=== PATIENT | female | born 1990 | race Caucasian/White ===

== ENCOUNTER → 2018-05-14 | Outpatient (CLI) | payer MEDICAID ==
[2018-05-14 17:07] LABS: HCT 39.5 % (34.0-46.0); HGB 13.6 gm/dL (11.4-16.0); MCH 29.9 pg (25.0-35.0); MCHC 34.4 g/dL (31.0-37.0); Mean Platelet Volume 7.5; Platelet Count 300 k/uL (150-450); RBC 4.54 m/uL (3.80-5.40); RDW 12.4 % (11.5-15.5); WBC 10.6 k/uL (3.8-10.6)
[2018-05-15 05:13] LABS: HIV 1 AB Non-Reactive (Non-Reactive); HIV AB P24 Non-Reactive (Non-Reactive); HIV P24 AG Non-Reactive (Non-Reactive)
[2018-05-15 05:34] LABS: Toxoplasma Antibody (IgG) <3.0 IU/mL (<7.2); Toxoplasma Antibody (IgM) 3.7 AU/mL (<8.0)
== END ==
LOC: LABWHC1 15:30
PROVIDERS: ATTEND Obstetrics & Gynecology
DX: Z34.01 Encounter for supervision of normal first pregnancy, first trimester (principal); Z3A.00 Weeks of gestation of pregnancy not specified
CPT/HCPCS: 36415; 82565; 82947; 85027; 86762; 86777; 86778; 86780; 86850; 86900; 86901; 87340; 87390

== ENCOUNTER → 2018-05-20 | Outpatient (CLI) | payer MEDICAID ==
--- NOTE | 2018-05-20 18:33 | US ---
EXAMINATION TYPE: Transabdominal DATE OF EXAM: 08/05/17 COMPARISON: NONE CLINICAL HISTORY: Z36 Confirm dates and viability. Dates, first ultrasound for EXAM PERFORMED: Transabdominal (TA) EXAM MEASUREMENTS: GESTATIONAL AGE / DATING Dates by LMP: (9 weeks/6 days) EDC: 12/17/2018 Dates by Current Scan for: (9 weeks/3 days) EDC: 12/20/2018 MATERNAL ANATOMY Uterus: 8.8 x 7.0 x 5.3 cm Right Ovary: 3.0 x 1.6 x 1.7 cm Left Ovary: 2.7 x 1.7 x 1.1 cm Post CDS / Adnexa: no free fluid Presence of free fluid: no Presence of corpus luteal cyst: no Presence of subchorionic bleed: no GESTATION / SURVEY CRL: 2.6 cm (9 weeks/3 days) MSD: seen, not measured Yolk Sac (normal less than 6mm): 4.2 Heart Rate: 166 bpm Rhythm: Normal IUP: Viable IUP Date of LMP: 03/12/2018, G1 Beta HcG (if available): Not available at this time Single live IUP measuring 9 weeks 3 days IMPRESSION: Single live intrauterine with a calculated sonographic age of 9 weeks and 3 days and estima ngoc date of delivery of 12/20/2018, concordant with menstrual age.
== END | disposition home or self-care (01) ==
LOC: RADUSWWP 15:54
PROVIDERS: ATTEND Obstetrics & Gynecology
DX: Z36.89 Encounter for other specified antenatal screening (principal); Z3A.09 9 weeks gestation of pregnancy
CPT/HCPCS: 76801

== ENCOUNTER → 2018-06-10 | Outpatient (CLI) | payer MEDICAID ==
--- NOTE | 2018-06-10 10:58 | US ---
EXAMINATION TYPE: Transabdominal DATE OF EXAM: 08/05/17 COMPARISON: CLINICAL HISTORY: O76. Absent Hearttones. No cramping or spotting, no FHT's with hand held doppler to day EXAM PERFORMED: Transabdominal (TA) EXAM MEASUREMENTS: GESTATIONAL AGE / DATING Dates by LMP: (12 weeks/6 days) EDC: 12/17/2018 Dates by Current Scan: (12 weeks/4 days) EDC: 12/17/2018 MATERNAL ANATOMY Uterus: 12.2 x 8.7 x 7.7 cm Right Ovary: 2.5 x 1.7 x 1.5 cm Left Ovary: 2.5 x 1.5 x 1.6 cm Post CDS / Adnexa: no free fluid Presence of free fluid: no Presence of corpus luteal cyst: no Presence of subchorionic bleed: no GESTATION / SURVEY CRL: 6.1 cm (12 weeks/4 days) MSD: seen, not measured Yolk Sac (normal less than 6mm): not visualized Heart Rate: 160 bpm Rhythm: Normal IUP: Viable IUP Date of LMP: 03/12/2018, G1 Beta HcG (if available): Not available at this time IMPRESSION: Single live IUP measuring 12 weeks 4 days
== END | disposition home or self-care (01) ==
LOC: RADUSWWP 10:22
PROVIDERS: ATTEND Obstetrics & Gynecology
DX: O76 Abnormality in fetal heart rate and rhythm complicating labor and delivery (principal); Z3A.12 12 weeks gestation of pregnancy
CPT/HCPCS: 76801

== ENCOUNTER → 2018-07-22 | Outpatient (CLI) | payer MEDICAID ==
--- NOTE | 2018-07-22 15:41 | US ---
EXAMINATION TYPE: US OB anatomy transabd DATE OF EXAM: 07/22/2018 COMPARISON: HISTORY: O36.62X0 Large for dates 2nd trimester Anatomy TECHNIQUE: Transabdominal (TA) EXAM MEASUREMENTS: GESTATIONAL AGE / DATING Physician Established: (18 weeks/6 days) EDC: 12/17/2018 Dates by Current Scan for: (18 weeks/5 days) EDC: 12/18/2018 SURVEY IUP: Single PLACENTA: Anterior PREVIA: No previa ROSALVA: 13.4 cm Normal CERVICAL LENGTH (transabdominal: norm > 3.0cm): 3.4 cm BIOMETRY PRESENTATION: Variable BPD: 4.4 cm 19 weeks / 2 days HC: 15.5 cm 18 weeks / 3 days AC: 13.9 cm 19 weeks / 2 days FL: 2.8 cm 18 weeks / 4 days ESTIMATED WEIGHT IN GRAMS: 262.3 grams ESTIMATED WEIGHT IN LBS/OZ: 0 lbs. 9 oz. WEIGHT PERCENTAGE BASED ON ESTABLISHED DATE: 46.7 % HC/AC: 1.1 Normal FL/AC: 20.0 HEART RATE: 145 bpm RHYTHM: Normal ANATOMY SEEN (within normal limits): * Lateral Vent (< 1 cm) 0.5 cm * Cisterna Magna (< 1.1 cm) 0.3 cm * Nuchal Fold (< 0.6 cm) 0.3 cm * Cerebellum (varies with age) 2.0 cm Choroid Plexus (bilateral) Midline Falx Four Chamber Heart Outflow tracts: LVOT/RVOT Stomach Situs Diaphragm Kidneys (bilateral) Bladder Cord Insert Three Vessel Cord Longitudinal Spine Transverse Spine Arms (bilateral) Legs (bilateral) ANATOMY NOT SEEN: Cavus Septi Pellucidi Nose / Lips IMPRESSION: Single live IUP measuring 18 weeks 5 days. CSP and Nose/lips not visualized due to position. Call back appointment scheduled within 2 weeks for anatomy not seen.
== END | disposition home or self-care (01) ==
LOC: RADUSWWP 14:22
PROVIDERS: ATTEND Obstetrics & Gynecology
DX: O36.62X0 Maternal care for excessive fetal growth, second trimester, not applicable or unspecified (principal); Z3A.18 18 weeks gestation of pregnancy
CPT/HCPCS: 76811

== ENCOUNTER → 2018-08-05 | Outpatient (CLI) | payer MEDICAID ==
--- NOTE | 2018-08-05 09:47 | US ---
EXAMINATION TYPE: US OB Call Back DATE OF EXAM: 08/05/2018 COMPARISON: US 2019 CLINICAL HISTORY: OB Callback CSP,Nose/Lips. GESTATIONAL AGE / DATING Dates by Initial Survey Scan: (20 weeks/6 days) EDC: 12/17/2018 HEART RATE: 143 bpm RHYTHM: Normal ANATOMY SEEN (second anatomic survey look): Limited visualization due to position Cavus Septi Pellucidi: Nose / Lips: Due to positioning the structures again could not be clearly identified. IMPRESSION: The above structures again could not be clearly identified due to positioning.
== END | disposition home or self-care (01) ==
LOC: RADUSWWP 08:59
PROVIDERS: ATTEND Obstetrics & Gynecology
DX: Z36.2 Encounter for other antenatal screening follow-up (principal)

== ENCOUNTER → 2018-09-09 | Outpatient (CLI) | payer MEDICAID ==
--- NOTE | 2018-09-10 08:10 | US ---
EXAMINATION TYPE: US OB >= 14 wk fetus DATE OF EXAM: 09/09/2018 COMPARISON: Prior ultrasounds June 10, 2018 and July 22, 2018 CLINICAL HISTORY: Z36 F/U from previous, O36.62XO Large for dates Growth, CSP and Nose/Lips per jillian r. Limited visualization of CSP and Nose/lips due to position. TECHNIQUE: Transabdominal (TA) GESTATIONAL AGE / DATING Physician Established: (25 weeks/6 days) EDC: 12/17/2018 Dates by Current Scan: (26 weeks/0 days) EDC: 12/16/2018 SURVEY IUP: Single PLACENTA: Anterior PREVIA: No Previa ROSALVA: 13.8 cm Normal CERVICAL LENGTH (transabdominal: norm > 3.0cm): 3.7 cm BIOMETRY PRESENTATION: Vertex BPD: 6.4 cm 26 weeks / 0 days HC: 23.7 cm 25 weeks / 6 days AC: 20.6 cm 25 weeks / 2 days FL: 4.9 cm 26 weeks / 4 days ESTIMATED WEIGHT IN GRAMS: 847 grams ESTIMATED WEIGHT IN LBS/OZ: 1 lbs. 14 oz. WEIGHT PERCENTAGE BASED ON ESTABLISHED DATES: 34% HC/AC: 1.2 Normal FL/AC: 24% Normal HEART RATE: 142 bpm RHYTHM: Normal Single Live IUP measuring 26 weeks 0 days. Nose/lips and CSP visualized on today's exam, appearing within normal limits. Single live intrauterine gestation is redemonstrated. Normal cephalad presentation is currently seen. No cervical thickening noted. No placenta previa. Amniotic fluid index is calculated within normal l imits. biometry measurements are concordant and felt within normal limits with satisfactory int erval growth. Suboptimal evaluation of nose and lips and cervical spine as requested due to adv anced age and positioning on images saved and during real-time scanning. IMPRESSION: As above.
== END | disposition home or self-care (01) ==
LOC: RADUSWWP 16:27
PROVIDERS: ATTEND Obstetrics & Gynecology
DX: O36.63X0 Maternal care for excessive fetal growth, third trimester, not applicable or unspecified (principal); Z36.89 Encounter for other specified antenatal screening; Z3A.36 36 weeks gestation of pregnancy
CPT/HCPCS: 76805

== ENCOUNTER → 2018-09-19 | Outpatient (CLI) | payer MEDICAID ==
[2018-09-19 10:36] LABS: HGB 11.5 gm/dL (11.4-16.0); MCH 28.8 pg (25.0-35.0); MCHC 33.7 g/dL (31.0-37.0); MCV 85.6 fL (80.0-100.0); Mean Platelet Volume 7.7; Platelet Count 259 k/uL (150-450); RBC 3.98 m/uL (3.80-5.40); RDW 14.4 % (11.5-15.5); WBC 10.3 k/uL (3.8-10.6)
== END | disposition home or self-care (01) ==
LOC: LABWHC1 08:45
PROVIDERS: ATTEND Obstetrics & Gynecology
DX: Z34.02 Encounter for supervision of normal first pregnancy, second trimester (principal)
CPT/HCPCS: 36415; 82950; 85027; 86850

== ENCOUNTER 2018-10-27 06:47 | Outpatient (CLI) | payer MEDICAID ==
[2018-10-27 07:42] LABS: Appearance,Urine Clear (Clear); Bacteria,Urine Occasional /hpf; Bilirubin,Urine Negative (Negative); Blood,Urine Negative (Negative); Color,Urine Light Yellow; Glucose,Urine (UA) Negative (Negative); Ketones,Urine Negative (Negative); Leukocyte Esterase,Urine Small (Negative); Nitrite,Urine Negative (Negative); Protein,Urine Negative (Negative); RBC,Urine 1 /hpf (0-5); Specific Gravity,Urine 1.004 (1.001-1.035); Squamous Epithelial Cell,Urine <1 /hpf (0-4); Urobilinogen,Urine <2.0 mg/dL (<2.0); WBC,Urine 2 /hpf (0-5)
--- NOTE | 2018-10-27 09:34 | US ---
EXAMINATION TYPE: US OB >= 14 wk fetus DATE OF EXAM: 10/27/2018 COMPARISON: US CLINICAL HISTORY: abd pain, cervical dilation ,dilated to 1 cm per patient; , pelvic pain per pat ient. TECHNIQUE: Transabdominal (TA) GESTATIONAL AGE / DATING Physician Established: (32 weeks/5 days) EDC: 12/17/2018 Dates by Current Scan: (33 weeks/0 days) EDC: 12/15/2018 Beta HCG (if available): NA SURVEY IUP: Single PLACENTA: Anterior PREVIA: No Previa ROSALVA: 10.3 cm Normal CERVICAL LENGTH (transabdominal: norm > 3.0cm): 3.25 cm BIOMETRY PRESENTATION: Vertex LIE: Longitudinal BPD: 8.4 cm 33 weeks / 6 days HC: 30.4 cm 33 weeks / 5 days AC: 29.7 cm 33 weeks / 4 days FL: 6.3 cm 32 weeks / 5 days ESTIMATED WEIGHT IN GRAMS: 2184 grams ESTIMATED WEIGHT IN LBS/OZ: 4 lbs. 13 oz. WEIGHT PERCENTAGE BASED ON ESTABLISHED DATES: 62.2% HC/AC: 1.02 Normal FL/AC: 21.3 Normal HEART RATE: 138 bpm RHYTHM: Normal Single, live IUP, 33 weeks/0 days, EDC: 12/15/2018, HR 138bpm; cervix length is normal. head is noted low in pelvis at cervix. IMPRESSION: Limited survey. Viable intrauterine corresponding to ultrasound age 33 weeks 0 days w ith estimated date of delivery 12/15/2018
[2018-10-27 10:24] VITALS: BP 132/73; PULSE 82; RESP 16; TEMP 97.4
--- NOTE | 2018-10-27 17:07 | P.MSEPDOC ---
Presenting Problems - Arrival Data Date of Arrival on Unit: 10/27/18 Time of Arrival on Unit: 06:47 Mode of Transport: Ambulatory - Complaint OB-Reason for Admission/Chief Complaint: Observation/Evaluation Comment: abdominal pain Medical History - Information : 1 Para: 0 Term: 0 : 0 Abortions: Spontaneous or Elective: 0 Number of Living Children: 0 - Gestational Age Gestational Age by OLAYINKA (wks/days): 32 Weeks and 5 Days Review of Systems - Review of Systems Constitutional: No problems Breast: No problems ENT: No problems Cardiovascular: No problems Respiratory: No problems Gastrointestinal: Constipation, Pain Genitourinary: No problems Musculoskeletal: No problems Neurological: No problems Skin: No problems Vital Signs - Temperature Temperature: 97.4 F Temperature Source: Temporal Artery Scan - Pulse Right Sitting Pulse Rate: 82 Pulse Assessment Method: Automatic Cuff - Respirations Respiratory Rate: 16 Oxygen Delivery Method: Room Air - Blood Pressure Right Arm Blood Pressure: 132/73 Blood Pressure Mean: 92 Blood Pressure Source: Automatic Cuff Medical Screen Scoring (Pre) - Cervical Exam Dilation: 1-3 cm = 1 Effacement: More than 50% = 2 Membranes: Intact - Uterine Contractions Frequency: N/A Duration: N/A Intensity: N/A - Maternal Vital Signs Maternal Temperature: N/A Maternal Blood Pressure: N/A Signs of Preeclampsia: N/A Maternal Respirations: N/A - Maternal Trauma Maternal Trauma: N/A - Assessment - Baby A Baseline FHR: 135 Heart Rate - NICHD Category: Category I (Normal) = 0 NST: Reactive Position: N/A Station: N/A - Total Score - Baby A Total Score - Baby A: 3 - Total Score - Baby B Total Score - Baby B: 3 - Total Score - Baby C Total Score - Baby C: 3 - Level of Risk - Baby A Level of Risk - Baby A: Low (0-5) - Level of Risk - Baby B Level of Risk - Baby B: Low (0-5) - Level of Risk - Baby C Level of Risk - Baby C: Low (0-5) Physician Notification (Pre) - Physician Notified Physician Notified Date: 10/27/18 Physician Notified Time: 09:38 Physician/Practitioner Notifed:: Nam Perkins Order Received: Yes (d/c home) - Notification Comment Comment: negative ffn, u/s wnl Disposition - Disposition OB Disposition: Discharge to home Discharge Date: 10/27/18 Discharge Time: 09:46 I agree with the RN Medical Screening Exam: Yes Risk & Benefit of care provided described in d/c instruction: Yes Diagnosis: UNSPECIFIED ABDOMINAL PAIN (Patient presented with complaints of some nonspecific abdominal discomfort while at work. heart tones are reassuring. Currently exam she was 1 cm dilated the fibronectin was negative and she is having no contractions. Patient did have a complete OB ultrasound which was normal. She's instructed on pelvic rest and decreased activities to return if she has more than 6 contractions an hour or worsening of her discomfort.)
== END 2018-10-27 09:46 | disposition home or self-care (01) ==
LOC: FBPOP 06:47
PROVIDERS: ATTEND Obstetrics & Gynecology
DX: O26.93 Pregnancy related conditions, unspecified, third trimester (principal); R10.9 Unspecified abdominal pain; Z3A.32 32 weeks gestation of pregnancy
CPT/HCPCS: 59025; 76805; 81001; 82731; 99213

== ENCOUNTER → 2018-11-13 | Outpatient (CLI) | payer MEDICAID ==
--- NOTE | 2018-11-14 18:09 | US ---
EXAMINATION TYPE: US OB >= 14 wk fetus DATE OF EXAM: 11/13/2018 COMPARISON: None CLINICAL HISTORY: O36.63X0 Large for dates 3rd trimester TECHNIQUE: Transabdominal (TA) GESTATIONAL AGE / DATING Physician Established: (35 weeks/1 days) EDC: 12/17/18 Dates by LMP: (35 weeks/1 days) EDC: 12/17/18 Dates by First Scan: ( 34 weeks/5 days) EDC: 12/20/18 Dates by Current Scan: ( 36weeks/1 days) EDC: 12/10/18 SURVEY IUP: Single PLACENTA: Anterior PREVIA: No Previa ROSALVA: 10.2 cm CERVICAL LENGTH (transabdominal: norm > 3.0cm): 3.2 cm BIOMETRY PRESENTATION: Vertex BPD:unable to obtain measurement due to position HC:unable to obtain measurement due to position AC: 31.8 cm 35 weeks / 5 days FL: 7.1 cm 36 weeks / 4 days ESTIMATED WEIGHT IN GRAMS: 2863 grams ESTIMATED WEIGHT IN LBS/OZ: 6 lbs. 5 oz. WEIGHT PERCENTAGE BASED ON ESTABLISHED DATES: 76% HC/AC: -- FL/AC: 22. HEART RATE: 158 bpm RHYTHM: Normal *Unable to obtain head measurements due to position. IMPRESSION: 1. Single intrauterine gestation estimated at 36 weeks 1 day gestation based on current ultrasound me asurements. This would've a calculated EDC of 12/10/2018. Correlate this with the physician established EDC of 12/17/2018 2. Cardiac activity measures 158 bpm. 3. Estimated weight 2863 g which is in the 76th percentile.
== END ==
LOC: RADUSWWP 16:14
PROVIDERS: ATTEND Obstetrics & Gynecology
DX: O36.63X0 Maternal care for excessive fetal growth, third trimester, not applicable or unspecified (principal); Z3A.36 36 weeks gestation of pregnancy
CPT/HCPCS: 76805

== ENCOUNTER 2018-11-28 09:22 | Outpatient (CLI) | payer MEDICAID ==
[2018-11-28 10:23] VITALS: BP 126/85; PULSE 103; RESP 18; TEMP 98.7
--- NOTE | 2018-12-12 10:58 | P.MSEPDOC ---
Presenting Problems - Arrival Data Date of Arrival on Unit: 11/28/18 Time of Arrival on Unit: 09:55 Mode of Transport: Ambulatory - Complaint OB-Reason for Admission/Chief Complaint: Possible Onset of Labor Comment: had contrx thru the night 4-10 min apart. denies leaking or active bleeding Medical History - Information : 1 Para: 0 Term: 0 : 0 Abortions: Spontaneous or Elective: 0 Number of Living Children: 0 - Gestational Age Gestational Age by OLAYINKA (wks/days): 37 Weeks and 2 Days Review of Systems - Review of Systems Constitutional: No problems Breast: No problems ENT: No problems Cardiovascular: No problems Respiratory: No problems Gastrointestinal: No problems Genitourinary: No problems Musculoskeletal: No problems Neurological: No problems Skin: No problems Vital Signs - Temperature Temperature: 98.7 F Temperature Source: Oral - Pulse Right Brachial Pulse Rate: 103 Pulse Assessment Method: Auscultation - Respirations Respiratory Rate: 18 Oxygen Delivery Method: Room Air O2 Sat by Pulse Oximetry: 97 - Blood Pressure Right Arm Blood Pressure: 126/85 Blood Pressure Mean: 98 Blood Pressure Source: Automatic Cuff Medical Screen Scoring (Pre) - Cervical Exam Dilation: 1-3 cm = 1 Effacement: More than 50% = 2 Membranes: Intact - Uterine Contractions Frequency: N/A Duration: > 40 seconds = 2 Intensity: N/A - Maternal Vital Signs Maternal Temperature: N/A Signs of Preeclampsia: N/A Maternal Respirations: N/A - Maternal Trauma Maternal Trauma: N/A - Assessment - Baby A Baseline FHR: 145 Heart Rate - NICHD Category: Category I (Normal) = 0 NST: Reactive Position: N/A Station: N/A - Total Score - Baby A Total Score - Baby A: 5 - Total Score - Baby B Total Score - Baby B: 5 - Total Score - Baby C Total Score - Baby C: 5 - Level of Risk - Baby A Level of Risk - Baby A: Low (0-5) - Level of Risk - Baby B Level of Risk - Baby B: Low (0-5) - Level of Risk - Baby C Level of Risk - Baby C: Low (0-5) Physician Notification (Pre) - Physician Notified Physician Notified Date: 11/28/18 Physician Notified Time: 09:50 Spoke With: khurram. New Order Received: Yes - Notification Comment Comment: disch if no chnage in cervix after one hour Disposition - Disposition OB Disposition: Discharge to home Discharge Date: 11/28/18 Discharge Time: 11:15 I agree with the RN Medical Screening Exam: Yes Risk & Benefit of care provided described in d/c instruction: Yes Diagnosis: FALSE LABOR AT OR AFTER 37 COMPLETED WEEKS OF GESTATION
== END 2018-11-28 11:15 | disposition home or self-care (01) ==
LOC: FBPOP 09:22
PROVIDERS: ATTEND Obstetrics & Gynecology
DX: O47.1 False labor at or after 37 completed weeks of gestation (principal); Z3A.37 37 weeks gestation of pregnancy
CPT/HCPCS: 59025; 99213

== ENCOUNTER 2018-11-28 11:46 | Inpatient (IN) | payer MEDICAID ==
[2018-11-28] MEDS ORDERED: CARBOPROST TROMETHAMINE 250 MCG/ML 1 ML AMP IM PRN (12:05)
[2018-11-28] MEDS ORDERED: OXYTOCIN 10 UNIT/ML 1 ML VIAL IM PRN (12:05)
[2018-11-28] MEDS ORDERED: OXYTOCIN 30 UNITS/500 ML NS 30 UNIT in SALINE 1 500ML.BAG IV SCH (12:05)
[2018-11-28] MEDS ORDERED: LIDOCAINE 0.5% (PF) 5 MG/ML (50 ML SDV) SQ PRN (12:05)
[2018-11-28] MEDS ORDERED: LACTATED RINGERS 1,000 ML IV SCH (12:05)
[2018-11-28] MEDS ORDERED: METHYLERGONOVINE 0.2 MG/ML 1 ML AMP IM PRN (12:05)
[2018-11-28] MEDS ORDERED: TERBUTALINE 1 MG/ML VIAL SQ PRN (12:05)
[2018-11-28 14:35] LABS: Anisocytosis Slight; Basophils % (A) 0 %; Eosinophils # (A) 0.1 k/uL (0-0.7); Eosinophils % (A) 1 %; HGB 11.7 gm/dL (11.4-16.0); Lymphocytes # (A) 2.7 k/uL (1.0-4.8); Lymphocytes % (A) 20 %; MCH 29.6 pg (25.0-35.0); MCHC 34.4 g/dL (31.0-37.0); MCV 85.9 fL (80.0-100.0); Mean Platelet Volume 9.7; Monocytes # (A) 0.7 k/uL (0-1.0); Monocytes % (A) 6 %; Neutrophils # (A) 9.5 k/uL (1.3-7.7); Neutrophils % (A) 71 %; Platelet Count 233 k/uL (150-450); RBC 3.95 m/uL (3.80-5.40); RDW 16.1 % (11.5-15.5); WBC 13.3 k/uL (3.8-10.6)
[2018-11-28] MEDS ORDERED: LANOLIN CREAM 5 GM TUBE TOPICAL PRN (15:38)
[2018-11-28] MEDS ORDERED: HYDROCORTISONE 2.5% RECTAL CREAM 30 GM TUBE RECTAL PRN (15:38)
[2018-11-28] MEDS ORDERED: ACETAMINOPHEN TAB 325 MG TAB PO PRN (15:38)
[2018-11-28] MEDS ORDERED: MEASLES-MUMPS-RUBELLA VACC/PF 12,500 UNIT/0.5 ML VIAL SQ ONE (15:38)
[2018-11-28] MEDS ORDERED: ZOLPIDEM 5 MG TAB PO PRN (15:38)
[2018-11-28] MEDS ORDERED: SIMETHICONE 80 MG CHEWABLE PO PRN (15:38)
[2018-11-28] MEDS ORDERED: diphenhydrAMINE 50 MG CAP PO PRN (15:38)
[2018-11-28] MEDS ORDERED: diphenhydrAMINE 50 MG/ML 1 ML VIAL IVP PRN ×2 (15:38)
[2018-11-28] MEDS ORDERED: WITCH HAZEL 1 EACH MED..PAD TOPICAL PRN (15:38)
[2018-11-28] MEDS ORDERED: BENZOCAINE/MENTHOL SPRAY 1 GM/SPRAY AEROSOL TOPICAL PRN (15:38)
[2018-11-28] MEDS ORDERED: diphenhydrAMINE 25 MG CAP PO PRN (15:38)
--- NOTE | 2018-11-28 15:40 | P.HPOB ---
History of Present Illness H&P Date: 11/28/18 Chief Complaint: Intrauterine at term active labor: Spontaneous ru pture membranes Tabitha is a 28-year-old at 37 weeks gestation who arrives following spontaneous rupture of membranes. She had been in labor and delivery earlier this morning had made no cervical change was discharged home. On driving home she noted large leak of fluid and her water broke she was brought back to labor and delivery category 1 heart rate tracings are noted and she is dilated 4 cm. We'll plan to allow her to see if she gets labor by herself and she is considering epidural for analgesia. Her Precis course otherwise has been unremarkable and she is feeling well at this time. Vital signs are stable and afebrile. Heart regular, lungs clear, extremities without pain. Abdomen soft nontender. Positive bowel sounds are noted. Gravid uterus is noted. Assessment intrauterine term. Plan expect spontaneous vaginal delivery. Past Medical History Past Medical History: No Reported History Additional Past Medical History / Comment(s): migraines History of Any Multi-Drug Resistant Organisms: None Reported Past Surgical History: No Surgical Hx Reported Smoking Status: Never smoker Medications and Allergies Home Medications Medication Instructions Recorded Confirmed Type Pnv,Calcium 72/Iron/Folic Acid 1 each PO DAILY 10/27/18 11/28/18 History [ Plus Tablet] Allergies Allergy/AdvReac Type Severity Reaction Status Date / Time No Known Allergies Allergy Verified 10/27/18 07:01 Exam Osteopathic Statement: *. No significant issues noted on an osteopathic structural exam other than those noted in the History and Physical/Consult. Intake and Output 11/28/18 11/28/18 11/28/18 06:59 14:59 22:59 Other: Weight 100.244 kg Results Result Diagrams: 11/28/18 12:45 Abnormal Lab Results - Last 24 Hours (Table) 11/28/18 Range/Units 12:45 WBC 13.3 H (3.8-10.6) k/uL RDW 16.1 H (11.5-15.5) % Neutrophils # 9.5 H (1.3-7.7) k/uL
--- NOTE | 2018-11-28 15:41 | P.PROBDLV ---
Vaginal Delivery Note - . Vaginal Delivery Note: patient progressed complete and pushed with spontaneous vaginal delivery of a viable female over an intact perineum. Falling deliver the head anterior posterior shoulders were easily delivered gentle downward upper traction followed by the remainder the baby. Baby was delivered from left occiput anterior position. Once he was delivered umbilical cord was allowed to pulsate for 30 seconds prior to clamping and cutting. Once this was accomplished nursery personnel was present and assumed care. Placenta was then delivered intact. Pitocin was added to the IV. Small laceration was noted in the right vaginal wall at approximately 7:00 it was repaired in running fashion with 3-0 Vicryl following 1% Xylocaine for analgesia. scores were 9 and 9 at one and 5 minutes respectively and the weight was 7 lbs. 0 oz. Both mother and baby are stable following delivery.
[2018-11-28] MEDS ORDERED: OXYTOCIN 20 UNITS/1000 ML NS 1,000 ML IV SCH (15:45)
[2018-11-28 18:10] VITALS: BMI 33.5
[2018-11-28] MEDS: IBUPROFEN 600 MG TAB PO PRN (19:44)
[2018-11-28] MEDS: SENNOSIDES-DOCUSATE SODIUM 1 EACH TAB PO SCH (19:44)
[2018-11-28] MEDS ORDERED: Rhogam IMMUNE GLOBULIN 1,500 UNIT/1 ML IM ONE (21:33)
[2018-11-29] MEDS: IBUPROFEN 600 MG TAB PO PRN ×2 (03:35→08:57)
[2018-11-29 07:10] LABS: Basophils # (A) 0.1 k/uL (0-0.2); Basophils % (A) 0 %; Eosinophils # (A) 0.1 k/uL (0-0.7); Eosinophils % (A) 1 %; HCT 29.9 % (34.0-46.0); HGB 10.2 gm/dL (11.4-16.0); Lymphocytes # (A) 3.6 k/uL (1.0-4.8); Lymphocytes % (A) 23 %; MCH 29.2 pg (25.0-35.0); MCHC 34.3 g/dL (31.0-37.0); MCV 85.1 fL (80.0-100.0); Mean Platelet Volume 8.5; Monocytes # (A) 0.9 k/uL (0-1.0); Monocytes % (A) 6 %; Neutrophils # (A) 10.8 k/uL (1.3-7.7); Neutrophils % (A) 68 %; Platelet Count 222 k/uL (150-450); RBC 3.51 m/uL (3.80-5.40); RDW 15.3 % (11.5-15.5); WBC 15.8 k/uL (3.8-10.6)
[2018-11-29] MEDS: SENNOSIDES-DOCUSATE SODIUM 1 EACH TAB PO SCH (08:57)
--- NOTE | 2018-11-29 09:44 | P.DS ---
Providers Date of admission: 11/28/18 12:10 Expected date of discharge: 11/29/18 Attending physician: Kristal Portillo Primary care physician: Stated None Hospital Course: Tabitha is doing very well post day 1. She is ambulating, voiding and tolerating her diet. She voices no complaints. Vital signs stable and afebrile. Heart regular, lungs clear, extremities are without pain. Abdomen is soft uterus is firm and lochia is reported to be light. Assessment post day 1. Plan discharged to home with instructions to follow up with Dr. Wesley in 6 weeks. Prescription for a breast pump provided. Discharge instructions are th oroughly reviewed and all questions were answered for her prior to her discharge. Patient Condition at Discharge: Good Plan - Discharge Summary New Discharge Prescriptions: No Action Pnv,Calcium 72/Iron/Folic Acid [ Plus Tablet] 1 each PO DAILY Discharge Medication List Pnv,Calcium 72/Iron/Folic Acid [ Plus Tablet] 1 each PO DAILY 10/27/18 [History] Follow up Appointment(s)/Referral(s): Kristal Portillo DO [Doctor of Osteopathic Medicine] - 6 Weeks Activity/Diet/Wound Care/Special Instructions: No heavy lifting, limit stairs and driving, and pelvic rest. If any high temperatures, heavy bleeding, or severe pain call my office Discharge Disposition: HOME SELF-CARE
[2018-11-29 10:36] VITALS: RESP 18
[2018-11-29 18:07] VITALS: BP 124/74; PULSE 82; TEMP 98.2
== END 2018-11-29 19:10 | disposition home or self-care (01) | DRG 807 ==
LOC: FBPOP 11:46 → 4FBP 12:10
PROVIDERS: ADMIT Obstetrics & Gynecology; ATTEND Obstetrics & Gynecology
PROC: 10E0XZZ Delivery of Products of Conception, External Approach (ICD-10-PCS; principal; 2018-11-28)
PROC: 0HQ9XZZ Repair Perineum Skin, External Approach (ICD-10-PCS; 2018-11-28)
DX: O99.354 Diseases of the nervous system complicating childbirth (principal); Z37.0 Single live birth; O71.4 Obstetric high vaginal laceration alone; G43.909 Migraine, unspecified, not intractable, without status migrainosus; Z3A.37 37 weeks gestation of pregnancy
CPT/HCPCS: 59025; 84112; 85025; 85461; 86850; 86900; 86901; 90707; 99213

== ENCOUNTER 2020-12-15 18:15 | Emergency (ER) | payer BC ==
[2020-12-15 18:33] VITALS: RESP 18; TEMP 98.1
--- NOTE | 2020-12-15 18:48 | ED ---
Lower Extremity Injury HPI - General Chief Complaint: Extremity Injury, Lower Stated Complaint: R ankle injury Source: patient Mode of arrival: wheelchair Limitations: physical limitation - History of Present Illness Initial Comments: 30-year-old white female, well-appearing and 24 weeks , presents to the emergency room after stepping on a rock at her house and rolling her right ankle. Patient states she took Tylenol and has been resting it but has been having difficulty bearing weight. There is no some bruising to the lateral aspect of her right foot so she came in for an x-ray. She states that she did get some pain relief with Tylenol that she took prior to arrival. There are no other injuries. There is no abdominal pain or vaginal bleeding or problems with . MD Complaint: ankle injury, foot injury -: hour(s) (10) Injury: Ankle: Right, Foot: Right Type of Injury: eversion Place: home, street/outdoors Severity scale (1-10): 8 Improves With: other (Tylenol) Worsens With: weight bearing Context: other (Stepped on a rock and rolled right ankle) Associated Symptoms: able to partially bear weight Treatments Prior to Arrival: other (tylenol) - Related Data Home Medications Medication Instructions Recorded Confirmed Pnv,Calcium 72/Iron/Folic Acid 1 each PO DAILY 10/27/18 11/28/18 [ Plus Tablet] Allergies Allergy/AdvReac Type Severity Reaction Status Date / Time No Known Allergies Allergy Verified 10/27/18 07:01 Review of Systems ROS Statement: Those systems with pertinent positive or pertinent negative responses have been documented in the HPI. ROS Other: All systems not noted in ROS Statement are negative. Past Medical History Past Medical History: No Reported History Additional Past Medical History / Comment(s): migraines History of Any Multi-Drug Resistant Organisms: None Reported Past Surgical History: No Surgical Hx Reported Past Anesthesia/Blood Transfusion Reactions: No Reported Reaction Past Psychological History: No Psychological Hx Reported Past Alcohol Use History: None Reported, Occasional Past Drug Use History: None Reported - Past Family History Mother Family Medical History: No Reported History General Exam Limitations: physical limitation General appearance: alert, in no apparent distress Head exam: Present: atraumatic, normocephalic, normal inspection Eye exam: Present: normal appearance, PERRL, EOMI. Absent: scleral icterus, conjunctival injection, periorbital swelling Pupils: Present: normal accommodation ENT exam: Present: normal exam, normal oropharynx, mucous membranes moist Neck exam: Present: normal inspection. Absent: tenderness, meningismus, lymphadenopathy Respiratory exam: Present: normal lung sounds bilaterally. Absent: respiratory distress, wheezes, rales, rhonchi, stridor, chest wall tenderness, accessory muscle use, decreased breath sounds, prolonged expiratory Cardiovascular Exam: Present: regular rate, normal rhythm, normal heart sounds. Absent: systolic murmur, diastolic murmur, rubs, gallop, clicks Right Ankle exam: Present: swelling Foot/Toe exam: Present: tenderness, swelling, ecchymosis (Lateral aspect of the fifth metatarsal). Absent: deformity, crepitus, dislocation, foreign body, calcaneal tenderness Neurovascular tendon exam: Present: no vascular compromise. Absent: abnormal cap refill, extremity cold to touch, pallor, foot drop Back exam: Present: normal inspection, full ROM. Absent: tenderness, CVA tenderness (R), CVA tenderness (L), muscle spasm, paraspinal tenderness, vertebral tenderness, rash noted Neurological exam: Present: alert, oriented X3, CN II-XII intact Psychiatric exam: Present: normal affect, normal mood Skin exam: Present: warm, dry, intact, normal color. Absent: rash Course Vital Signs 12/15/20 12/15/20 18:28 20:20 Temperature 98.1 F Pulse Rate 70 80 Respiratory 18 18 Rate Blood Pressure 128/71 115/71 O2 Sat by Pulse 99 96 Oximetry Medical Decision Making - Medical Decision Making X-ray of the right ankle and foot shows borderline widening of the medial clear space suggestive of ligamentous injury, however patient has no pain in this area. There is no acute osseous abnormality. Patient has no pain with flexion or dorsiflexion. Pain, bruising and swelling is noted to the right lateral aspect at the base of the fifth metatarsal. Case discussed with Dr. George. Patient was placed in an air splint and given crutches. Directed to follow-up with orthopedics. Disposition Clinical Impression: Foot sprain, Sprain and strain of ankle Disposition: HOME SELF-CARE Condition: Good Instructions (If sedation given, give patient instructions): Ankle Sprain (ED), Foot Contusion (ED), Foot Sprain (ED) Additional Instructions: Use the air splint and crutches. Rest, ice to site, and elevate while at home. Use Tylenol for pain. Follow-up with orthopedics next week. Is patient prescribed a controlled substance at d/c from ED?: No Referrals: Missy Avery DO [Primary Care Provider] - 1-2 days Sky Tijerina PAC [PHYSICIAN VESSEL [employer]DINARY SEAMAN] - 1-2 days Time of Disposition: 20:07
--- NOTE | 2020-12-15 19:39 | XR ---
Result: Clinical History: Pain status post injury. Comparison: None available. Technique: AP, lateral and oblique views of the right ankle. AP, lateral and oblique views of the right foot. Findings: The bone mineralization is age-appropriate. Right ankle: There is no acute fracture or dislocation. There is borderline widening of the medial cl ear space. The joint spaces are preserved. Right foot: There is no acute fracture or dislocation. The visualized osseous structures are in eduardo omic alignment. The joint spaces are preserved. IMPRESSION: Borderline widening of the medial clear space, suggestive of ligamentous injury. No acute osseous abnormality of the right ankle or foot.
[2020-12-15 20:23] VITALS: BP 115/71; PULSE 80
== END 2020-12-15 20:33 | disposition home or self-care (01) ==
LOC: EC 18:15
DX: O9A.212 Injury, poisoning and certain other consequences of external causes complicating pregnancy, second trimester (principal); S93.401A Sprain of unspecified ligament of right ankle, initial encounter; Z3A.24 24 weeks gestation of pregnancy; W22.8XXA Striking against or struck by other objects, initial encounter
CPT/HCPCS: 99283

== ENCOUNTER 2021-02-06 19:11 | Outpatient (CLI) | payer BC ==
[2021-02-06 20:32] VITALS: BP 135/63; PULSE 98; RESP 16; TEMP 96.7
--- NOTE | 2021-02-07 09:13 | P.MSEPDOC ---
Presenting Problems - Arrival Data Date of Arrival on Unit: 02/06/21 Time of Arrival on Unit: 19:11 Mode of Transport: Ambulatory - Complaint OB-Reason for Admission/Chief Complaint: Pain Comment: Patient arrives to triage with complaints of abdominal tightness and cramping that has occured throughout the day while on her feet at work but is releived while resting. Medical History - Information : 2 Para: 1 Term: 1 : 0 Abortions: Spontaneous or Elective: 0 Number of Living Children: 1 - Gestational Age Gestational Age by OLAYINKA (wks/days): 31 Weeks and 5 Days Review of Systems - Review of Systems Constitutional: No problems Breast: No problems ENT: No problems Cardiovascular: No problems Respiratory: No problems Gastrointestinal: No problems Genitourinary: No problems Musculoskeletal: No problems Neurological: No problems Skin: No problems Vital Signs - Temperature Temperature: 96.7 F - Pulse Right Brachial Pulse Rate: 98 Pulse Assessment Method: Automatic Cuff - Respirations Respiratory Rate: 16 Oxygen Delivery Method: Room Air O2 Sat by Pulse Oximetry: 98 - Blood Pressure Right Arm Blood Pressure: 135/63 Blood Pressure Mean: 87 Blood Pressure Source: Automatic Cuff Medical Screen Scoring - Cervical Exam Membranes: Intact - Assessment - Baby A Baseline FHR: 145 Heart Rate - NICHD Category: Category I (Normal) NST: Reactive Physician Notification - Physician Notified Physician Notified Date: 02/06/21 Physician Notified Time: 19:57 Physician: Puneet Browning New Order Received: Yes - Notification Comment Comment: Called with report of patient c/o abdominal tightness, heart tones, and blood pressures. FFN, cervical exam, repeat blood pressures, and u/a ordered. 1954- Dr. Browning called to check in. Cervix closed and decreased in elevated blood pressure. Patient approved for discharge. Maternal Triage Index - Maternal Triage Index Presenting for scheduled procedure w/no complaint: No - Stat/Priority 1 Stat Priority 1: No - Urgent/Priority 2 Urgent Priority 2: No - Prompt/Priority 3 Prompt Priority 3: No - Non-Urgent/Priority 4 Non-Urgent Priority 4: Yes Criteria Met for Priority 4: Patient arrives to triage with complaints of abdominal tightness and cramping that has occured throughout the day while on her feet at work but is releived while resting. Disposition - Disposition OB Disposition: Discharge to home Discharge Date: 02/06/21 Discharge Time: 20:00 I agree with the RN Medical Screening Exam: Yes Case reviewed; plan agreed upon as documented in EMR&OBIX.: Yes Diagnosis: FALSE LABOR BEFORE 37 COMPLETED WEEKS OF GEST, THIRD TRI
== END 2021-02-06 20:00 ==
LOC: FBPOP 19:11
PROVIDERS: ATTEND Obstetrics & Gynecology
DX: O47.03 False labor before 37 completed weeks of gestation, third trimester (principal); Z3A.31 31 weeks gestation of pregnancy
CPT/HCPCS: 59025; 99213

== ENCOUNTER 2021-03-05 17:15 | Outpatient (CLI) | payer BC ==
[2021-03-05 18:57] VITALS: BP 130/73; PULSE 76; RESP 18; TEMP 97.1
--- NOTE | 2021-03-05 19:00 | P.MSEPDOC ---
Presenting Problems - Arrival Data Date of Arrival on Unit: 03/05/21 Time of Arrival on Unit: 17:15 Mode of Transport: Ambulatory - Complaint OB-Reason for Admission/Chief Complaint: Possible Onset of Labor Medical History - Information : 2 Para: 1 Term: 1 : 0 Abortions: Spontaneous or Elective: 0 Number of Living Children: 1 - Gestational Age Gestational Age by OLAYINKA (wks/days): 35 Weeks and 4 Days Review of Systems - Review of Systems Constitutional: No problems Breast: No problems ENT: No problems Cardiovascular: No problems Respiratory: No problems Gastrointestinal: No problems Genitourinary: No problems Musculoskeletal: No problems Neurological: No problems Skin: No problems Vital Signs - Temperature Temperature: 97.1 F Temperature Source: Temporal Artery Scan - Pulse Right Sitting Brachial Pulse Rate: 76 Pulse Assessment Method: Automatic Cuff - Respirations Respiratory Rate: 18 Oxygen Delivery Method: Room Air O2 Sat by Pulse Oximetry: 98 - Blood Pressure Right Arm Sitting Blood Pressure: 130/73 Blood Pressure Mean: 92 Blood Pressure Source: Automatic Cuff Medical Screen Scoring - Cervical Exam Dilation (cm): 1.5 Effacement (%): 50 Station: -2 Membranes: Intact - Assessment - Baby A Baseline FHR: 135 Heart Rate - NICHD Category: Category I (Normal) NST: Reactive Physician Notification - Physician Notified Physician Notified Date: 03/05/21 Physician Notified Time: 18:00 Physician: Puneet Browning New Order Received: Yes - Notification Comment Comment: Ok to dc home. Pt to return with continued or increased symptoms. Follow up with Dr Portillo Friday as scheduled. Maternal Triage Index - Maternal Triage Index Presenting for scheduled procedure w/no complaint: No - Stat/Priority 1 Stat Priority 1: No - Urgent/Priority 2 Urgent Priority 2: No - Prompt/Priority 3 Prompt Priority 3: No - Non-Urgent/Priority 4 Non-Urgent Priority 4: Yes Criteria Met for Priority 4: rule out labor, 35 4/7 - Scheduled/Requesting Priority 5 Scheduled/Requesting Priority 5: No Disposition - Disposition OB Disposition: Discharge to home Discharge Date: 03/05/21 Discharge Time: 18:53 I agree with the RN Medical Screening Exam: Yes Case reviewed; plan agreed upon as documented in EMR&OBIX.: Yes Diagnosis: FALSE LABOR BEFORE 37 COMPLETED WEEKS OF GEST, THIRD TRI
== END 2021-03-05 18:57 | disposition home or self-care (01) ==
LOC: FBPOP 17:15
PROVIDERS: ATTEND Obstetrics & Gynecology
DX: O47.03 False labor before 37 completed weeks of gestation, third trimester (principal); Z3A.35 35 weeks gestation of pregnancy
CPT/HCPCS: 59025; 99213

== ENCOUNTER 2021-03-16 11:39 | Inpatient (IN) | payer BC ==
[2021-03-16] MEDS ORDERED: OXYTOCIN 10 UNIT/ML 1 ML VIAL IM PRN (13:20)
[2021-03-16] MEDS ORDERED: LIDOCAINE 0.5% (PF) 5 MG/ML (50 ML SDV) SQ PRN (13:20)
[2021-03-16] MEDS ORDERED: TERBUTALINE 1 MG/ML VIAL SQ PRN (13:20)
[2021-03-16] MEDS ORDERED: METHYLERGONOVINE 0.2 MG/ML 1 ML AMP IM PRN (13:20)
[2021-03-16] MEDS ORDERED: CARBOPROST TROMETHAMINE 250 MCG/ML 1 ML AMP IM PRN (13:20)
[2021-03-16] MEDS ORDERED: OXYTOCIN 30 UNITS/500 ML NS 30 UNIT in SALINE 1 500ML.BAG IV SCH ×2 (13:30→16:30)
[2021-03-16] MEDS: LACTATED RINGERS 1,000 ML IV SCH ×2 (14:04→15:02)
[2021-03-16 14:18] LABS: Basophils % (A) 0 %; Eosinophils # (A) 0.1 k/uL (0-0.7); Eosinophils % (A) 1 %; HCT 35.8 % (34.0-46.0); HGB 12.5 gm/dL (11.4-16.0); Hyperchromasia Slight; Lymphocytes # (A) 2.9 k/uL (1.0-4.8); Lymphocytes % (A) 24 %; MCH 30.4 pg (25.0-35.0); MCHC 35.1 g/dL (31.0-37.0); MCV 86.8 fL (80.0-100.0); Monocytes # (A) 0.6 k/uL (0-1.0); Monocytes % (A) 5 %; Neutrophils # (A) 8.3 k/uL (1.3-7.7); Neutrophils % (A) 68 %; Platelet Count 313 k/uL (150-450); Poikilocytosis Slight; RBC 4.12 m/uL (3.80-5.40); RDW 14.2 % (11.5-15.5); WBC 12.3 k/uL (3.8-10.6)
[2021-03-16] MEDS ORDERED: SODIUM CHLORIDE 0.9% 100 ML BAG ONE (14:33)
[2021-03-16] MEDS ORDERED: ROPIVACAINE 5MG/ML 20ML VIAL ONE (14:33)
[2021-03-16] MEDS ORDERED: fentaNYL (PF) 50 MCG/ML 5 ML AMP ONE (14:33)
[2021-03-16] MEDS ORDERED: HYDROCORTISONE 2.5% RECTAL CREAM 30 GM TUBE RECTAL PRN (16:18)
[2021-03-16] MEDS ORDERED: LANOLIN CREAM 5 GM TUBE TOPICAL PRN (16:18)
[2021-03-16] MEDS ORDERED: diphenhydrAMINE 50 MG CAP PO PRN (16:18)
[2021-03-16] MEDS ORDERED: ZOLPIDEM 5 MG TAB PO PRN (16:18)
[2021-03-16] MEDS ORDERED: SIMETHICONE 80 MG CHEWABLE PO PRN (16:18)
[2021-03-16] MEDS ORDERED: BENZOCAINE/MENTHOL SPRAY 1 GM/SPRAY AEROSOL TOPICAL PRN (16:18)
[2021-03-16] MEDS ORDERED: IBUPROFEN 600 MG TAB PO PRN (16:18)
[2021-03-16] MEDS ORDERED: ACETAMINOPHEN TAB 325 MG TAB PO PRN (16:18)
[2021-03-16] MEDS ORDERED: diphenhydrAMINE 50 MG/ML 1 ML VIAL IVP PRN ×2 (16:18)
[2021-03-16] MEDS ORDERED: diphenhydrAMINE 25 MG CAP PO PRN (16:18)
--- NOTE | 2021-03-16 18:55 | P.HPOB ---
History of Present Illness H&P Date: 03/16/21 Chief Complaint: Contractions This is a 30-year-old female 2 para 1 with an estimated date of confinement of 04/05/2021, estimated gestational age of 37-2/7 weeks, who presents to labor and delivery with complaints of contractions that became stronger today. She was seen in the office earlier this morning and found to be 5 cm. Upon arrival in triage she was initially 5 cm but did make change to 6 cm after one hour. She was jose irregularly at that time. course has been essentially uncomplicated. labs: Hepatitis B surface antigen-negative RPR-nonreactive Rubella-immune Blood type-A- Antibody screen-negative HIV-nonreactive Hemoglobin-13.4 Toxoplasma screen-negative Random glucose-83 One hour Glucola-100 RhoGAM is given at 28 weeks Group B streptococcus-negative Obstetrical history: . History of 1 vaginal delivery at 37 weeks with no complications. Gynecologic history: No history of sexual transmitted diseases. Social history: She is . She works as an RN. Review of Systems Constitutional: Denies chills, Denies fever Eyes: denies blurred vision, denies pain Ears, nose, mouth and throat: Denies headache, Denies sore throat Cardiovascular: Denies chest pain, Denies shortness of breath Respiratory: Denies cough Gastrointestinal: Reports abdominal pain (Contractions), Denies diarrhea, Denies nausea, Denies vomiting Genitourinary: Reports pelvic pain, Reports Musculoskeletal: Reports low back pain Integumentary: Denies pruritus, Denies rash Neurological: Denies numbness, Denies weakness Psychiatric: Reports anxiety, Reports depression Past Medical History Past Medical History: No Reported History Additional Past Medical History / Comment(s): migraines History of Any Multi-Drug Resistant Organisms: None Reported Past Surgical History: No Surgical Hx Reported Past Anesthesia/Blood Transfusion Reactions: No Reported Reaction Past Psychological History: No Psychological Hx Reported Smoking Status: Never smoker Past Alcohol Use History: None Reported, Occasional Past Drug Use History: None Reported - Past Family History Mother Family Medical History: No Reported History Medications and Allergies Home Medications Medication Instructions Recorded Confirmed Type Pnv,Calcium 72/Iron/Folic Acid 1 each PO DAILY 10/27/18 02/06/21 History [ Plus Tablet] Allergies Allergy/AdvReac Type Severity Reaction Status Date / Time No Known Allergies Allergy Verified 03/16/21 11:54 Exam Osteopathic Statement: *. No significant issues noted on an osteopathic structural exam other than those noted in the History and Physical/Consult. Vital Signs Temp Pulse Resp BP 03/16/21 18:29 64 16 114/58 03/16/21 17:59 98.3 F 71 16 114/67 03/16/21 17:29 71 16 117/61 03/16/21 17:14 98.0 F 75 16 115/57 03/16/21 16:59 98.3 F 87 16 116/66 03/16/21 16:44 67 16 120/64 03/16/21 16:29 98.2 F 96 16 139/62 03/16/21 14:09 98.0 F 64 16 121/63 Intake and Output 03/16/21 03/16/21 03/16/21 06:59 14:59 22:59 Other: # Voids 1 1 Weight 91.172 kg Gen.: Well-developed well-nourished female in no acute distress HEENT: Within normal limits Heart: Regular rate and rhythm Lungs: Clear to auscultation bilaterally Abdomen: Cervix: 6 cm/70%/-2 station heart tones: Category 1, reactive Contractions: Every 2-5 minutes Extremities: Negative Homans Results Result Diagrams: 03/16/21 13:35 Abnormal Lab Results - Last 24 Hours (Table) 03/16/21 Range/Units 13:35 WBC 12.3 H (3.8-10.6) k/uL Neutrophils # 8.3 H (1.3-7.7) k/uL Assessment and Plan (1) 37 weeks gestation of Current Visit: Yes Status: Acute Code(s): Z3A.37 - 37 WEEKS GESTATION OF SNOMED Code(s): 67492543 Plan: Admission for active labor. Expectant management. Artificial rupture membranes. Epidural anesthesia if desired.
--- NOTE | 2021-03-16 18:57 | P.PROBDLV ---
Vaginal Delivery Note - . Vaginal Delivery Note: The patient progressed to complete dilation after artificial rupture membranes with clear fluid noted and epidural anesthesia. Once reaching complete, she began pushing. 's head came to a crown. With one further push, the 's head delivered across the perineum followed by the anterior shoulder. Nose and mouth were bulb suctioned and with one remaining push, the remainder the easily delivered and was placed on mother's abdomen. Cord was clamped and cut and was taken to warmer for evaluation. A viable female was noted with scores of 9 at 1 minute and 9 at 5 minutes and infant weight was 7 lbs. 10 oz. Placenta delivered shortly thereafter, intact, with a three-vessel cord. Her bladder was also drained with a catheter. Uterus did contract fairly well after oxytocin was given and uterine massage was carried out. Inspection of the perineum revealed no perineal lacerations. Estimated blood loss is approximately 150 mL's. Both mother and are in stable condition.
[2021-03-16] MEDS: SENNOSIDES-DOCUSATE SODIUM 1 EACH TAB PO SCH (19:45)
[2021-03-17] MEDS ORDERED: Rhogam IMMUNE GLOBULIN 1,500 UNIT/1 ML IM ONE (01:33)
[2021-03-17] MEDS: SENNOSIDES-DOCUSATE SODIUM 1 EACH TAB PO SCH ×2 (08:04→19:46)
[2021-03-17 10:21] LABS: Basophils # (A) 0.1 k/uL (0-0.2); Basophils % (A) 0 %; Eosinophils # (A) 0.1 k/uL (0-0.7); Eosinophils % (A) 1 %; HCT 34.6 % (34.0-46.0); HGB 12.3 gm/dL (11.4-16.0); Hyperchromasia Slight; Lymphocytes # (A) 3.4 k/uL (1.0-4.8); Lymphocytes % (A) 27 %; MCH 30.6 pg (25.0-35.0); MCHC 35.6 g/dL (31.0-37.0); MCV 86.2 fL (80.0-100.0); Mean Platelet Volume 9.1; Monocytes # (A) 0.7 k/uL (0-1.0); Monocytes % (A) 5 %; Neutrophils # (A) 8.2 k/uL (1.3-7.7); Neutrophils % (A) 65 %; Platelet Count 273 k/uL (150-450); Poikilocytosis Slight; RBC 4.01 m/uL (3.80-5.40); RDW 14.7 % (11.5-15.5); WBC 12.7 k/uL (3.8-10.6)
--- NOTE | 2021-03-17 11:25 | P.DS ---
Providers Date of admission: 03/16/21 13:10 Expected date of discharge: 03/17/21 Attending physician: Kristal Portillo Primary care physician: Stated None - Discharge Diagnosis(es) (1) 37 weeks gestation of Current Visit: Yes Status: Acute Hospital Course: This is a 30-year-old female 2 para 1 at 37-2/7 weeks who presented in active labor. She delivered vaginally a viable female infant with scores of 9 at 1 minute and 9 at 5 minutes and weight of 7 lbs. 10 oz. on 03/16/2021. Her course has been uncomplicated. Lochia has been decreasing. She is breast-feeding without difficulty. Vital signs are stable. Abdomen is soft with fundus firm and nontender. Extremities show negative Homans. Impression is status post vaginal delivery day #1. Plan is to discharge home later today. Routine instructions are given. She will be given a prescription for ibuprofen and also per her request a prescription for Zoloft to start if she needs it. She does have a history of depression after her last baby. She also will be given a prescription for a breast pump. She is advised to follow up in the office in 6 weeks. She is advised to call the office if she has any further questions or concerns prior to her appointment time. Procedures: Spontaneous vaginal delivery of a viable female infant on 03/16/2021 Patient Condition at Discharge: Stable Plan - Discharge Summary New Discharge Prescriptions: New Sertraline [Zoloft] 50 mg PO DAILY #30 tab Ibuprofen [Motrin] 600 mg PO Q6HR PRN #60 tab PRN Reason: Mild Pain (Scale 1 To 3) Continue Pnv,Calcium 72/Iron/Folic Acid [ Plus Tablet] 1 each PO DAILY Discharge Medication List Pnv,Calcium 72/Iron/Folic Acid [ Plus Tablet] 1 each PO DAILY 10/27/18 [History] Ibuprofen [Motrin] 600 mg PO Q6HR PRN #60 tab 03/17/21 [Rx] Sertraline [Zoloft] 50 mg PO DAILY #30 tab 03/17/21 [Rx] Follow up Appointment(s)/Referral(s): Kristal Portillo DO [Doctor of Osteopathic Medicine] - 6 Weeks Activity/Diet/Wound Care/Special Instructions: Instructions 1. Do not begin any exercise program for 3 weeks. 2. Do not resume sexual relations for 3 weeks or longer if uncomfortable. 3. You may take tub baths or showers at any time. 4. You may use tampons if desired after 3 weeks. 5. Keep the area of episiotomy (stitches) clean and dry. 6. If you are not nursing, wear a good fitting, supportive bra during the day and limit fluid intake for at least 1 week to prevent breast engorgement. 7. Call the office, [phone], within the next week to make appointment for your 6 week checkup if it has not already been made. 8. Report any of the following occurrences to the doctor promptly: a. Heavy, excessive bleeding b. Chills, fever c. Burning or frequency of urination d. Pain or redness and breasts if nursing e. Increasing pain or swelling in episiotomy (stitches). In addition to the above instructions, the following additional should be followed: 1. No heavy lifting or straining (exercising) until after 6 week checkup. 2. Keep abdominal incision clean and dry: You may wear a dressing if more comfortable. 3. Make office appointment for 10 days after going home or as instructed by her doctor. Discharge Disposition: HOME SELF-CARE
[2021-03-18] MEDS: SENNOSIDES-DOCUSATE SODIUM 1 EACH TAB PO SCH (08:01)
[2021-03-18 09:20] VITALS: BP 112/73; PULSE 60; RESP 18; TEMP 97.8
== END 2021-03-18 15:10 | disposition home or self-care (01) | DRG 807 ==
LOC: FBPOP 11:39 → 4FBP 13:10
PROVIDERS: ADMIT Obstetrics & Gynecology; ATTEND Obstetrics & Gynecology
PROC: 10E0XZZ Delivery of Products of Conception, External Approach (ICD-10-PCS; principal; 2021-03-16)
PROC: 10907ZC Drainage of Amniotic Fluid, Therapeutic from Products of Conception, Via Natural or Artificial Opening (ICD-10-PCS; 2021-03-16)
PROC: 00HU33Z Insertion of Infusion Device into Spinal Canal, Percutaneous Approach (ICD-10-PCS; 2021-03-16)
PROC: 3E0R3NZ Introduction of Analgesics, Hypnotics, Sedatives into Spinal Canal, Percutaneous Approach (ICD-10-PCS; 2021-03-16)
DX: O99.62 Diseases of the digestive system complicating childbirth (principal); Z37.0 Single live birth; Z3A.37 37 weeks gestation of pregnancy; K21.9 Gastro-esophageal reflux disease without esophagitis; Z79.899 Other long term (current) drug therapy
CPT/HCPCS: 59025; 85025; 85461; 86850; 86900; 86901; 99213